=== PATIENT | male | born 2000 | race Two or more races ===

== ENCOUNTER 2022-08-20 11:21 | Emergency (ER) | payer OTHER ==
[~2022-08-20] VITALS: Ht 167.6 cm; Wt 75.0 kg
[2022-08-20 13:05] VITALS: BP 111/70
[2022-08-20] MEDS ORDERED: TETANUS-DIPTH-ACEL PERTUSSIS 0.5ML SYR Tdap IM ONE (14:15)
== END 2022-08-20 14:31 | disposition home or self-care (01) ==
LOC: ER 11:21
DX: S01.81XA Laceration without foreign body of other part of head, initial encounter (principal); S09.90XA Unspecified injury of head, initial encounter; W20.8XXA Other cause of strike by thrown, projected or falling object, initial encounter; Y93.89 Activity, other specified; Y92.89 Other specified places as the place of occurrence of the external cause; Y99.8 Other external cause status
CPT/HCPCS: 90471; 90715